=== PATIENT | male | born 1955 | race Caucasian/White ===

== ENCOUNTER 2023-11-18 15:00 | Outpatient (RCR) | payer OTHER, SELFPAY ==
[2023-11-13 10:28] VITALS: BP 150/64; PULSE 55
== END 2023-12-25 08:15 | disposition home or self-care (01) ==
LOC: HO.PT 15:00
PROVIDERS: PCP Internal Medicine; Visit Provider Otolaryngology
DX: H81.4 Vertigo of central origin (principal)
CPT/HCPCS: 95992; 97112; 97162

== ENCOUNTER 2024-11-17 08:15 | Outpatient (AMB) | payer MEDICARE, SELFPAY ==
--- OUTSIDE RECORDS SUMMARY | 2024-11-17 09:10 | XMS_ITS | Clinical Summary ---
Author Organization [facility] Address [address] [place] [address] Care Team Providers Care Distribution Dispatcher Name Role Phone Toshia Peña MD Primary Care Provider [phone] Allergies Active Allergy Reactions Criticality Noted Date Comments Cat Dander 01/03/2017 Iodinated Contrast Media 01/03/2017 Shellfish Allergy 01/03/2017 Medications Medication Sig Dispensed Refills Start Date End Date Status ALLOPURINOL PO Take 100 mg by mouth 2 (two) times a day. 0 Active Multiple Vitamins-Minerals (MENS MULTI VITAMIN & MINERAL PO) Take by mouth. 0 Active sildenafil (VIAGRA) 100 MG tablet Take 1 tablet (100 mg total) by mouth daily as needed for erectile dysfunction. 0 Active Albuterol Sulfate, sensor, 108 (90 Base) MCG/ACT AEPB Inhale 1 puff into the lungs 2 (two) times a day. 0 Active amLODIPine-benazepril (LOTREL 5-20) 5-20 MG per capsule Take 1 capsule by mouth daily. 0 Active Active Problems Problem Noted Date Diagnosed Date Seasonal allergies 08/06/2019 Primary osteoarthritis of left hip 08/06/2019 Anxiety 08/06/2019 Frequency of micturition 08/06/2019 Essential hypertension 02/07/2019 Iron deficiency anemia 02/07/2019 Anemia 02/05/2019 CLL (chronic lymphocytic leukemia) 02/21/2017 Family History Medical History Relation Name Comments Cancer Father lung Relation Name Status Comments Father Social History Tobacco Use Types Packs/Day Years Used Date Smoking Tobacco: Never Smokeless Tobacco: Never Alcohol Use Standard Drinks/Week Comments No 0 (1 standard drink = 0.6 oz pur e alcohol) Sex and Gender Information Value Date Recorded Sex Assigned at Not on file Gender Identity Not on file Sexual Orientation Not on file Job Start Date Occupation Industry Not on file Not on file Not on file Last Filed Vital Signs Vital Sign Reading Time Taken Comments Blood Pressure 138/52 02/14/2023 3:07 PM EST Pulse 64 02/14/2023 3:07 PM EST Temperature 37.1 C (98.8 F) 02/14/2023 3:07 PM EST Respiratory Rate - - Oxygen Saturation 97% 02/14/2023 3:07 PM EST Inhaled Oxygen Concentration - - Weight 105.8 kg (233 lb 3.2 oz) 02/14/2023 3:07 PM EST Height 172.7 cm (5' 8 ) 02/07/2021 3:34 PM EST Body Mass Index 35.46 02/07/2021 3:34 PM EST Plan of Treatment Health Maintenance Due Date Last Done Comments Hepatitis C Screening 1954 Depression Screening 1966 BMI Counseling 1972 Preventative Health Evaluation 1972 Colon Cancer Screening (Colonoscopy) 07/26/1999 RSV Adult > 60+ Yrs or (1 - Risk 60-74 years 1-dose series) 2014 Fall Risk Assessment 07/26/2019 DTap / Tdap / Td (2 - Td or Tdap) 06/27/2021 06/28/2011 Pneumococcal Vaccine (3 of 3 - PPSV23 or PCV20) 09/04/2022 03/01/2020, 09/04/2017 COVID-19 Vaccine (4 - season) 2024 01/06/2021, 05/25/2020, 05/04/2020 Influenza Vaccine (#1) 2024 2, 01/16/2021, 12/20/2019, Additional history exists Shingrix-Zoster Vaccine Completed 02/20/2019, 10/12 Hepatitis B Vaccines Aged Out No long er eligible based on patient's age to complete this topic RSV Ped < 20 months Aged Out No longe r eligible based on patient's age to complete this topic Insurance Payer Benefit Plan / Group Subscriber ID Effective Dates Phone Address [facility] Effective for all dates [address] [place] [address] [place] [id number] 2019-Pre sent [employer] [address] [place] [address] Medicare [place] [id number] 2021-Pre sent [address] [place] [address] HMO Care Teams Distribution Dispatcher Relationship Specialty Start Date End Date Toshia Peña MD [address] [place] [address] PCP - General Internal Medicine 01/03/17
--- OUTSIDE RECORDS SUMMARY | 2024-11-17 09:10 | XMS_ITS | Clinical Summary ---
Author Organization [facility] Address [address] [place] [address] Care Team Providers Care Trucking Supervisor Name Role Phone Pcp, No Primary Care Provider Unavailabl e Medications allopurinol (ZYLOPRIM) 100 mg tablet 07/29/2016 Active Active Problems Problem Noted Date Diagnosed Date CLL (chronic lymphocytic leukemia) 09/04/2016 Immunizations Immunization Administration Dates Next Due Tdap 06/28/2011 Social History Tobacco Use Types Packs/Day Years Used Date Smoking Tobacco: Never Assessed Sex and Gender Information Value Date Recorded Sex Assigned at Not on file Legal Sex Male 5:29 PM EDT Gender Identity Not on file Sexual Orientation Not on file Last Filed Vital Signs Vital Sign Reading Time Taken Comments Blood Pressure 130/68 08/22/2016 8:20 AM EDT Pulse 72 08/22/2016 8:20 AM EDT Temperature - - Respiratory Rate - - Oxygen Saturation - - Inhaled Oxygen Concentration - - Weight 106 kg (233 lb) 08/22/2016 8:20 AM EDT Height 170.2 cm (5' 7 ) 08/22/2016 8:20 AM EDT Body Mass Index 36.49 08/22/2016 8:20 AM EDT Plan of Treatment Health Maintenance Due Date Last Done Comments Advance Care Planning 1955 Hepatitis C Virus Screening 1955 Pneumococcal Vaccines 50+ (1 of 1 - PCV) 2004 Zoster (Shingles) Vaccine (1 of 2) 2004 DTaP/Tdap/Td Vaccines (2 - T d or Tdap) 06/27/2021 06/28/2011 COVID-19 Vaccine ( - 2023-2 5 season) 2024 RSV Vaccine 60 years and old er and Patients (1 - 1-dose 75+ series) 2029 Hepatitis B Vaccines Aged Out No long er eligible based on patient's age to complete this topic Care Teams Trucking Supervisor Relationship Specialty Start Date End Date Pcp, No PCP - General General Medicine 07/26/16
== END 2024-11-17 08:16 | disposition home or self-care (01) ==
LOC: HO.HMGAL 08:15
PROVIDERS: PCP Internal Medicine; Visit Provider Registered Nurse Emergency
DX: J30.89 Other allergic rhinitis (principal)
CPT/HCPCS: 95117; 95165

== ENCOUNTER 2024-12-08 08:23 | Outpatient (AMB) | payer MEDICARE, SELFPAY | END 2024-12-08 08:35 | disposition home or self-care (01) | LOC: HO.HMGAL 08:23 | PROVIDERS: PCP Internal Medicine; Visit Provider Registered Nurse Emergency | DX: J30.89 Other allergic rhinitis (principal) | CPT/HCPCS: 95117; 95165 ==

== ENCOUNTER 2024-12-22 08:47 | Outpatient (AMB) | payer MEDICARE, SELFPAY ==
--- OUTSIDE RECORDS SUMMARY | 2024-12-22 09:23 | XMS_ITS | Clinical Summary ---
Author Organization [facility] Address [address] [place] [address] Care Team Providers Care Mainframe Architect Name Role Phone Pcp, No Primary Care [...] - 2023-2 5 season) 2024 RSV Vaccine 50 years and old er and Patients (1 - 1-dose 75+ series) 2029 Hepatitis B Vaccines Aged Out No long er eligible based on patient's age to complete this topic Care Teams Mainframe Architect Relationship Specialty Start Date End Date Pcp, No PCP - General General Medicine 07/26/16
== END 2024-12-22 08:48 | disposition home or self-care (01) ==
LOC: HO.HMGAL 08:47
PROVIDERS: PCP Internal Medicine; Visit Provider Registered Nurse Emergency
DX: J30.89 Other allergic rhinitis (principal)
CPT/HCPCS: 95117; 95165

== ENCOUNTER 2025-01-12 09:28 | Outpatient (AMB) | payer MEDICARE, SELFPAY ==
--- OUTSIDE RECORDS SUMMARY | 2025-01-12 10:27 | XMS_ITS | Clinical Summary ---
Author Organization [facility] Address [address] [place] [address] Care Team Providers Care Stitch Burnisher Name Role Phone Toshia Peña MD Primary Care Provider [phone] Allergies Active Allergy Reactions Criticality Noted Date [...] Group Subscriber ID Effective Dates Phone Address [facility] Effective for all dates [address] [place] [address] [place] ONLY [id number] 2019-Pre sent [phone] [employer] [address] [place] [address] Medicare [place] [id number] 2021-Pre sent [address] [place] [address] HMO Care Teams Stitch Burnisher Relationship Specialty Start Date End Date Toshia Peña MD [address] [place] [address] PCP - General Internal Medicine 01/03/17
== END 2025-01-12 09:28 | disposition home or self-care (01) ==
LOC: HO.HMGAL 09:28
PROVIDERS: PCP Internal Medicine; Visit Provider Registered Nurse Emergency
DX: J30.89 Other allergic rhinitis (principal)
CPT/HCPCS: 95117; 95165

== ENCOUNTER 2025-02-02 09:24 | Outpatient (AMB) | payer MEDICARE, SELFPAY ==
--- OUTSIDE RECORDS SUMMARY | 2025-02-02 10:14 | XMS_ITS | Clinical Summary ---
Author Organization [facility] Address [address] [place] [address] Care Team Providers Care Finish Remover Name Role Phone Toshia Peña MD Primary Care Provider [phone] Allergies Active Allergy Reactions Criticality Noted Date [...] Group Subscriber ID Effective Dates Phone Address [facility] Effective for all dates [address] [place] [address] [place] ONLY [id number] 2019-Pre sent [phone] [employer] [address] [place] [address] Medicare [place] [id number] 2021-Pre sent [address] [place] [address] HMO Care Teams Finish Remover Relationship Specialty Start Date End Date Toshia Peña MD [address] [place] [address] PCP - General Internal Medicine 01/03/17
== END 2025-02-02 09:24 | disposition home or self-care (01) ==
LOC: HO.HMGAL 09:24
PROVIDERS: PCP Internal Medicine; Visit Provider Registered Nurse Emergency
DX: J30.89 Other allergic rhinitis (principal)
CPT/HCPCS: 95117; 95165

== ENCOUNTER 2025-02-21 11:16 | Outpatient (AMB) | payer MEDICARE, SELFPAY ==
--- OUTSIDE RECORDS SUMMARY | 2025-02-16 14:00 | XMS_ITS | Encounter Summary ---
Author Organization [facility] [place] [address] Care Team Providers Care Process Tech Name Role Phone Toshia Peña MD Primary Care Provider [phone] Reason for Visit * Reason Comments Follow-up Encounter Details Date Type Department Care Team (Late st Contact Info) Description 02/16/2025 2:00 PM EST Office Visit [facility] Hematology Oncology [address] [place] [address] Oliva Garner MD [address] [place] [phone] CLL (chronic lymphocytic leukemia) ([facility] V24, [facility] V28) (Primary Dx) Social History Tobacco Use Types Packs/Day Years Used Date Smoking Tobacco: Never Smokeless Tobacco: Never Tobacco Cessation:Counseling Given: Not Answered Alcohol Use Standard Drinks/Week Comments No 0 (1 standard drink = 0.6 oz pur e alcohol) Sex and Gender Information Value Date Recorded Sex Assigned at Not on file Legal Sex Male 3:06 AM EST Gender Identity Not on file Sexual Orientation Not on file documented as of this encounter Last Filed Vital Signs Vital Sign Reading Time Taken Comments Blood Pressure 128/50 02/16/2025 1:58 PM EST Pulse 54 02/16/2025 1:58 PM EST Temperature 36.9 C (98.5 F) 02/16/2025 1:58 PM EST Respiratory Rate - - Oxygen Saturation 100% 02/16/2025 1:58 PM EST Inhaled Oxygen Concentration - - Weight 108 kg (238 lb) 02/16/2025 1:58 PM EST Height - - Body Mass Index - - documented in this encounter Progress Notes * Oliva Hilliard-MD Umm - 02/16/2025 2:00 PM EST Images from the original note were not included. CHIEF COMPLAINT: Chief Complaint Patient presents with Follow-up CLL-diagnosis 2011 IDENTIFIER:Mckinley Green is a 69 y.o. male. HPI: The patient returns for follow up of chronic lymphocytic leukemia., Approximately 12 years since initial diagnosis 2011 Pt seen in clinic a year ago For details of initial diagnosis and follow up until JAN 02, 2024- please refer to notes from prior [facility] EMR last note dated 02/14/2023 Patient feels well, except for intermittent allergic symptoms. He has not been able to lose weight.He denies any fevers or drenching night sweats. He has not felt any new lymphadenopathy. He had labwork performed and is reviewed Awaiting right hip surgery The following is copied, reviewed and edited Cancer Staging No matching staging information was found for the patient. Oncology History No problem history exists. Dr Auguste note 63 y.o. male who presented with leukocytosis in July 2012 and was found to have chronic lymphocytic leukemia with 13q deletion which usually predicts an indolent course. At office visit in December 2016 lymphocyte count had doubled, likely because he had been on prednisone when blood work drawn. Subsequently returned to his usual range. He has no palpable lumps, fever, bleeding or infections, sweats or bleeding. No interim complaints, ecxcept he is having continuing issues with nocturia and is seeing urologist for BPH, and has occasional momentary twinges of pain in left lateral chest. 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 Lymphocytes count had risen last fall, back to baseline, overall stable since June 2014. Minimally anemic, borderline low platelet count noted last year back to normal PLAN: No need for treatment at this time. Follow-up office visit in 6 months with lab prior, including anemia workup 01/2019-- Patient was previously following with Dr. Auguste, and it is his first visit with me today per Dr. Auguste prison Patient reports that he has been feeling well. He is been diagnosed with CLL several years previously. A year ago he had mild anemia. Currently he reports fatigue and also feeling more cold. His weight has been gradually increasing. He denies having felt any new lymph node enlargement. He denies any chills, fevers or nighttime sweats. No areas of back or bone pain. He has not noticed any bleeding. He had lab work performed today and in future would like to have lab work performed at a lab closerto his home. He had questions regarding the use of injections against allergy and whether this would worsen his lab work, not likely 02/2024 - Patient reports that he has been feeling fairly well over the last year except for persistent sinussymptoms, seasonal allergies. He has had gradual weight gain. He reports episode of positional vertigo which improved after 2 sessions with physical therapy. No falls. He has not noticed any lymphadenopathy, denies any chills fevers or night sweats. He had lab work performed that showed elevation in white count to 28, previously 23, may be related to the allergies. ROS: GENERAL: No malaise, significant weight loss or fever NECK: No lumps, goiter, pain or significant neck swelling RESPIRATORY: No cough, wheezing or shortness of breath CARDIOVASCULAR: No chest pain, leg swelling or palpitations GI: No abdominal discomfort, blood in stools or black stools MUSCULOSKELETAL: No joint pain or swelling, back pain, or muscle pain. HEMATOLOGY/LYMPHOLOGY No prolonged bleeding, easy bruisability or swollen nodes Other Systems review is non contributory PAST MEDICAL HISTORY: Active Ambulatory Problems Diagnosis Date Noted Anemia 02/05/2019 Anxiety 08/06/2019 CLL (chronic lymphocytic leukemia) ([facility] V24, [facility] V28) 02/21/2017 Essential hypertension 02/07/2019 Frequency of micturition 08/06/2019 Iron deficiency anemia 02/07/2019 Primary osteoarthritis of left hip 08/06/2019 Seasonal allergies 08/06/2019 Resolved Ambulatory Problems Diagnosis Date Noted No Resolved Ambulatory Problems Past Medical History: Diagnosis Date Leukemia ([facility] V24, [facility] V28) SOCIAL HISTORY: Social History Tobacco Use Smoking status: Never Smokeless tobacco: Never Substance Use Topics Alcohol use: No FAMILY HISTORY: Family History Problem Relation Name Age of Onset Cancer Father lung Current Outpatient Medications: albuterol sulfate 90 mcg/actuation aero powdr breath act w/sensor, Inhale 1 puff into the lungs 2 (two) times a day., Disp: , Rfl: amLODIPine-benazepril (LOTREL) 5-20 mg per capsule, Take 1 capsule by mouth 1 (one) time each day.,Disp: , Rfl: doxazosin (CARDURA) 2 mg tablet, Take 1 tablet (2 mg total) by mouth., Disp: , Rfl: multivitamin (MULTIPLE VITAMINS ORAL), Take by mouth., Disp: , Rfl: rosuvastatin (CRESTOR) 10 mg tablet, Take 1 tablet (10 mg total) by mouth., Disp: , Rfl: sildenafiL (VIAGRA) 100 mg tablet, Take 1 tablet (100 mg total) by mouth daily as needed for erectile dysfunction., Disp: , Rfl: Allergies Allergen Reactions Cat Hair Standardized Allergenic Extract Iodinated Contrast Media Shellfish Derived PHYSICAL EXAM: Visit Vitals BP 128/50 (BP Location: Left arm, Patient Position: Sitting, BP Cuff Size: Small adult) Pulse 54 Temp 36.9 ??C (98.5 ??F) (Temporal) Wt 108 kg (238 lb) SpO2 100% Smoking Status Never APPEARANCE: Alert and in no acute distress EYES: PERRL, conjunctiva pink and sclera are Normal without icterus ORAL CAVITY: No erythema or exudates NECK: Neck supple, no adenopathy, HEART: RRR with normal S1 and S2, no murmurs, no gallops, no JVD appreciated LUNG: clear to auscultation bilaterally Percussion note normal LYMPH NODES: No palpable superficial adenopathy ABDOMEN: Bowel sounds normoactive, no bruits, soft, non-tender, without organomegaly or palpable masses EXTREMITIES: Extremities warm and well perfused without clubbing, cyanosis, rash or edema NEURO: Oriented X 3, no focal weakness; sensation is normal LABS: Review of Lab results , interpreted Lab Results Component Value Date WBC 24.9 (H) 01/05/2025 HGB 12.0 (L) 01/05/2025 HCT 37.2 (L) 01/05/2025 MCV 87.1 01/05/2025 PLT 116 (L) 01/05/2025 No results found for: NA , K , CL , CO2 , GLUCOSE , BUN , CREATININE , CALCIUM , PROT , ALBUMIN , BILITOT , AST , ALT , URICACID , PHOS , MG , ALKPHOS , CKTOTAL , EGFR Review of Imaging, interpreted No image results found. Review of External Documentation Notes from PCP office Tests ordered - CBC D IMPRESSION: 1. CLL (chronic lymphocytic leukemia) ([facility] V24, [facility] V28) PLAN: 69-year-old man with CLL #1 CLL-initial diagnosis 2011, approximately 12 years on surveillance without needing systemic therapy Patient has leukocytosis, normal platelet count, no significant lymphadenopathy, mild anemia that appears to be related to iron deficiency Stage 0 disease with a gradual increase in WBC as expected Plan is to continue close clinical and lab monitoring at 6-month intervals Lab work requested twice a year Repeat CBC, differential, LDH, IgG level. - Anemia has worsened, advised him to resume iron intake for the next 6 months #2 anemia, likely secondary to mild iron deficiency - resolved He was on [id number] iron tablets, ferrous sulfate 65 mg iron, completed 6 months of additional supplementation No evidence of hemolysis, no significant macrocytosis Patient would also benefit from age-appropriate screening such as colonoscopy, he should follow-up with his PCP regarding the same #3 seasonal allergies, no contraindication for CLL, he may continue allergy medications Patient reports he may need to look for a new reo asset manager -- Follow-up with allergy testing and changing medication if needed #4 prostatic symptoms and Erectile dysfunction-urology Dr. Villagomez following #5 left hip replacement, completed in 2021 May need for right side, patient wants to wait longer, but appears to have more symptoms over the last 6 months Continue labs at 6 months and follow-up in 1 year, patient agrees with this plan. Pain Control--no issues Health Care Proxy--no one Oliva Garner MD Toshia Peña MD documented in this encounter Plan of Treatment Upcoming Encounters Date Type Department Care Team (Late st Contact Info) Description 02/03/2026 10:45 AM EST Office Visit [facility] Hematology Oncology [address] [place] [phone] Oliva Garner MD [address] [place] [address] Scheduled Orders Name Type Priority Associated Diagnoses Orde r Schedule Immunoglobulin IgG Lab Routine CLL (chronic lymphocytic leukemia) ([facility] [place], [facility] V28) Every 12 weeks for 2 Occurrences starting 02/16/2025 until 02/16/2026 Lactate dehydrogenase Lab Routine CLL (chronic lymphocytic leukemia) ([facility] [place], [facility] V28) Every 12 weeks for 2 Occurrences starting 02/16/2025 until 02/16/2026 CBC and differential Lab Routine CLL (chronic lymphocytic leukemia) ([facility], [facility] V28) Every 12 weeks for 2 Occurrences starting 02/16/2025 until 02/16/2026 documented as of this encounter Visit Diagnoses Diagnosis CLL (chronic lymphocytic leukemia) ([facility], [facility] V28)- Primary Chronic lymphoid leukemia, without mention of having achieved remission documented in this encounter Discontinued Medications Medication Sig Discontinue Reason Start Date End Da te ALLOPURINOL ORAL Take 100 mg by mouth 2 (two) times a day. 02/16/2025 documented as of this encounter Care Teams Process Tech Relationship Specialty Start Date End Date Toshia Peña MD [address] [place] [address] PCP - General Internal Medicine 01/03/17 documented as of this encounter
--- OUTSIDE RECORDS SUMMARY | 2025-02-21 14:23 | XMS_ITS | Clinical Summary ---
Author Organization [facility] Address [address] [place] [address] Care Team Providers Care Formwork Carpenter Name Role Phone Toshia Peña MD Primary Care Provider Allergies Active Allergy Reactions Criticality Noted Date Comments Cat Hair Standardized Allergenic Extract 01/03/2017 Iodinated Contrast Media 01/03/2017 Shellfish Derived 01/03/2017 Medications albuterol sulfate 90 mcg/actuation aero powdr breath act w/sensor Inhale 1 puff into the lungs 2 (two) times a day. Active amLODIPine-manuel azepril (LOTREL) 5-20 mg per capsule Take 1 capsule by mouth 1 (one) time each day. Active multivitamin (MULTIPLE VITAMINS ORAL) Take by mouth. Active sildenafiL (VIAGRA) 100 mg tablet Take 1 tablet (100 mg total) by mouth daily as needed for erectile dysfunction. Active doxazosin (CARDURA) 2 mg tablet Take 1 tablet (2 mg total) by mouth. 4 Active rosuvastatin (CRESTOR) 10 mg tablet Take 1 tablet (10 mg total) by mouth. 4 Active ALLOPURINOL ORAL Take 100 mg by mouth 2 (two) times a day. 025 Discontinued Active Problems Problem Noted Date Diagnosed Date Anxiety 08/06/2019 Frequency of micturition 08/06/2019 Primary osteoarthritis of left hip 08/06/2019 Seasonal allergies 08/06/2019 Essential hypertension 02/07/2019 Iron deficiency anemia 02/07/2019 Anemia 02/05/2019 CLL (chronic lymphocytic leukemia) 02/21/2017 Encounters Date Type Department Care Team Description 02/16/2025 2:00 PM EST Office Visit [facility] Hematology Oncology [address] [place] [phone] Babak-Oliva Salomon MD CLL (chronic lymphocytic leukemia) ([facility] V24, [facility] V28) (Primary Dx) 01/05/2025 9:00 AM EST Lab Draw Station - [address] [id number] CLL (chronic lymphocytic leukemia) ([facility] V24, [facility] V28) (Primary Dx) from Last 3 Months Immunizations Immunization Administration Dates Next Due Pfizer SARS-CoV-2 COVID-19, mRNA, LNP-S, preservative free 01/06/2021,05/25/2020,05/04/2020 Surgical History Surgery Date Site/Laterality Comments COLONOSCOPY PROCEDURE:COLONOSCOPY TOTAL HIP ARTHROPLASTY PROCEDURE:REPLACEMENT TOTAL HIP W/ RESURFACING IMPLANTS;COMMENT:left Medical History Medical History Date Comments Anemia DX:Anemia Leukemia ([facility] V24, [facility] V28) DX:Leukemia (HCC) Family History Medical History Relation Name Comments [...] - - Body Mass Index - - Plan of Treatment Upcoming Encounters Date Type Department Care Team (Late st Contact Info) Description 02/03/2026 10:45 AM EST Office Visit [facility] Hematology Oncology [address] [place] [address] Oliva Garner MD [address] [place] [address] Health Maintenance Due Date Last Done Comments Colorectal Cancer Screening: Colonoscopy 1955 Cholesterol Screening (Lipid Panel) 02/09/2022 Falls Risk Assessment 02/09/2022 Hepatitis C Screening 02/09/2022 Medicare Annual Wellness Visit 02/09/2022 Social Influencers of Health Screening 02/09/2022 Hypertension/CHF/CAD Annual BMP Blood Test 02/24/2022 Depression Screening 03/03/2024 COVID-19 Vaccine (8 - Pfizer risk season) 2025 12/31/2024, 01/05/2024, 12/12/2022, Additional history exists DTaP,Tdap,and Td Vaccines (4 - Td or Tdap) 12/23/2029 12/24/2019, 06/29/2013, 06/28/2011 Zoster Vaccines Completed 02/20/2019, 10/01, 01/29/2015 RSV Immunization Adult Patients Completed 12/12/2022 Pneumococcal Vaccine: 50+ Years Completed 07/09/2023, 03/01/2020, 09/04/2017 Influenza Vaccine Completed 12/31/2024, , 01/17/2023, Additional history exists HIB Vaccines Aged Out No longer eligi ble based on patient's age to complete this topic HPV Vaccines Aged Out No longer eligi ble based on patient's age to complete this topic Hepatitis A Vaccines Aged Out No long er eligible based on patient's age to complete this topic Hepatitis B Vaccines Aged Out No long er eligible based on patient's age to complete this topic IPV Vaccines Aged Out No longer eligi ble based on patient's age to complete this topic MMR Vaccines Aged Out No longer eligi ble based on patient's age to complete this topic Meningococcal ACWY Vaccine Aged Out N o longer eligible based on patient's age to complete this topic Meningococcal B Vaccine Aged Out No l onger eligible based on patient's age to complete this topic RSV Immunization Patients Under 20 months Aged Out No longer eligible based on patient's age to complete this topic Varicella Vaccines Aged Out No longer eligible based on patient's age to complete this topic Procedures Procedure Name Priority Date/Time Associated Diagnosis Comments COMPLETE BLOOD COUNT Routine 01/05/2025 8:59 AM EST CLL (chronic lymphocytic leukemia) ([facility] V24, [facility] V28) LACTATE DEHYDROGENASE Routine 01/05/2025 8:59 AM EST CLL (chronic lymphocytic leukemia) ([facility] V24, [facility] V28) IMMUNOGLOBULIN IGG Routine 01/05/2025 8: 59 AM EST CLL (chronic lymphocytic leukemia) ([facility] V24, [facility] V28) from Last 3 Months Results * (ABNORMAL) Complete blood count (01/05/2025 8:59 AM EST) WBC 24.9(H) 4.8 - 10.8 K/mcL LAB HEMETOLOGY METHOD 01/05/2025 12:25 PM [facility] RBC 4.30(L) 4.50 - 5.50 M/mcL LAB HEMETOLOGY METHOD 01/05/2025 12:25 PM [facility] Hemoglobin 12.0(L) 13.5 - 17.5 g/dL LAB HEMETOLOGY METHOD 01/05/2025 12:25 PM [facility] Hematocrit 37.2(L) 42.0 - 54.0 % LAB HEMETOLOGY METHOD 01/05/2025 12:25 PM [facility] MCV 87.1 79.0 - 98.0 FL LAB HEMETOLOGY METHOD 01/05/2025 12:25 PM [facility] MCH 28.1 27.0 - 32.0 pcg LAB HEMETOLOGY METHOD 01/05/2025 12:25 PM [facility] MCHC 32.3 32.0 - 37.0 g/dL LAB HEMETOLOGY METHOD 01/05/2025 12:25 PM EST [facility] RDW 14.6 11.0 - 15.0 % LAB HEMETOLOGY METHOD 01/05/2025 12:25 PM [facility] Platelets 116(L) 130 - 400 K/mcL LAB HEMETOLOGY METHOD 01/05/2025 12:25 PM [facility] MPV 10.5 7.0 - 11.0 FL LAB HEMETOLOGY METHOD 01/05/2025 12:25 PM [facility] NRBC 0.0 <1.0 % LAB HEMETOLOGY METHOD 01/05/2025 12:25 PM [facility] NRBC Absolute 0.00 <0.10 K/mcL LAB HEMETOLOGY METHOD 01/05/2025 12:25 PM [facility] Blood Venous blood specimen / Unknown Venipuncture / Unknown 01/05/2025 8:59 AM EST 01/05/2025 11:35 AM EST us Subramdannielle Garner MD LAB BLOOD ORDERABLE S Final Result [facility] [address] [place] [address], [place] [phone] * Lactate dehydrogenase (01/05/2025 8:59 AM EST) LDH 147 120 - 246 unit/L LAB CHEMISTRY METHOD 01/05/2025 12:09 PM EST [facility] Blood Venous blood specimen / Unknown Venipuncture / Unknown 01/05/2025 8:59 AM EST 01/05/2025 11:35 AM EST us Oliva Garner MD LAB BLOOD ORDERABLE S Final Result [facility] [address] [place] [address], [place] [phone] * Immunoglobulin IgG (01/05/2025 8:59 AM EST) Total IgG 552 549 - 1,584 mg/dL LAB CHEMISTRY METHOD 01/05/2025 12:09 PM EST [facility] Blood Venous blood specimen / Unknown Venipuncture / Unknown 01/05/2025 8:59 AM EST 01/05/2025 11:35 AM EST us Subramony Patsy LOZA LAB BLOOD ORDERABLE S Final Result [facility] [address] [place] [address], from Last 3 Months Insurance MEDICARE MEDICARE [facility] Care Teams Formwork Carpenter Relationship Specialty Start Date End Date Toshia Peña MD [address] [place] [address] PCP - General Internal Medicine 01/03/17
--- OUTSIDE RECORDS SUMMARY | 2025-02-21 14:23 | XMS_ITS | Clinical Summary ---
Author Organization [facility] Prior to 07/31/[address] [place] [id number] Care Team Providers Care Manager Administrative Name Role Phone Toshia Peña MD Primary Care Provider [phone] Allergies Active Allergy Reactions Criticality Noted Date [...] 09/04/2022 03/01/2020, 09/04/2017 COVID-19 Vaccine (4 - 2024- season) 2024 01/06/2021, 05/25/2020, 05/04/2020 Influenza Vaccine [...] Group Subscriber ID Effective Dates Phone Address [facility] Effective for all dates [address] [place] [address] [place] ONLY [id number] 2019-Pre sent [employer] [address] [place] [address] Medicare [place] [place] [id number] 2021-Pre sent [address] [place] [address] HMO Care Teams Manager Administrative Relationship Specialty Start Date End Date Toshia Peña MD [address] [place] [phone] PCP - General Internal Medicine 01/03/17
== END 2025-02-21 11:17 | disposition home or self-care (01) ==
LOC: HO.HMGAL 11:16
PROVIDERS: PCP Internal Medicine; Visit Provider Registered Nurse Emergency
DX: J30.89 Other allergic rhinitis (principal)
CPT/HCPCS: 95117; 95165